=== PATIENT | female | born 1940 | race Caucasian/White ===

== ENCOUNTER → 2016-09-27 | Outpatient (CLI) | payer OTHER ==
[~2016-09-27] MED LIST: ACTOS15 MG PO; ASPIR-LOW81 M1 PO; ATENOLOL25 MG PO; CITALOPRAM HBR40 M1 PO; CLONAZEPAM0.5 MG PO; HYDROCHLOROTHIA25 MG PO; LIPITOR80 MG PO; NORVASC5 MG PO; PRILOSEC20 MG PO; SIMVASTATIN5 MG PO; TRAZODONE HCL50 MG PO; ZESTRIL,PRINIVI20 MG PO
== END | disposition home or self-care (01) ==
LOC: RAD 10:29
DX: M16.11 Unilateral primary osteoarthritis, right hip (principal); M16.12 Unilateral primary osteoarthritis, left hip
CPT/HCPCS: 73522

== ENCOUNTER → 2017-08-14 | Outpatient (CLI) | payer OTHER | END | disposition home or self-care (01) | LOC: RAD 09:46 | DX: K76.0 Fatty (change of) liver, not elsewhere classified (principal); K86.89 Other specified diseases of pancreas | CPT/HCPCS: 76705 ==